=== PATIENT | female | born 1930 | race Caucasian/White ===

== ENCOUNTER 2016-12-18 10:48 | Emergency (ER) | payer MEDICARE, BC ==
[~2016-12-18] VITALS: Ht 165.1 cm; Wt 77.0 kg
[~2016-12-18 10:48] MED LIST: ATOR40TA PO; ESTR0.752 PO; FOSI40TA PO; LORTA5 PO; LYRI50CA2 PO; PRIL40CA PO; REST30CA PO
[2016-12-18 10:59] VITALS: BP 137/77; PULSE 79; RESP 18; TEMP 97.4; O2SAT 94
[2016-12-18] MEDS ORDERED: DULO1CAP2 PO (11:31)
[2016-12-18] MEDS ORDERED: FOSI40TA PO (11:31)
[2016-12-18] MEDS ORDERED: TEMA30CA PO (11:31)
[2016-12-18] MEDS ORDERED: LEVO75TA3 PO (11:31)
[2016-12-18] MEDS ORDERED: OMEP40CA2 PO (11:31)
[2016-12-18] MEDS ORDERED: ATOR40TA16 PO (11:31)
--- NOTE | 2016-12-18 12:15 | PD ---
HPI Chief Complaint: Musculoskeletal Complaint Time Seen by Provider: 11:40 Travel History International Travel<30 days: No Contact w/Intl Traveler<30days: No Traveled to known affect area: No History of Present Illness HPI 86-year-old female presents emergency department for evaluation of left posterior rib pain. Patient reports 2 days ago while in the bathroom her left knee gave out causing her to partially fall onto the sink counter top injuring the left rib on the edge of the countertop. She denies falling to the ground. There was no loss of consciousness. Patient is not anticoagulated. She reports she had pain at the site of the ribs which has been constant since the fall. She denies headache, chest pain, shortness of breath, abdominal pain, nausea or vomiting or hematuria. PFSH Past Medical History Hx Anticoagulant Therapy: No Arthritis: Yes Asthma: No Autoimmune Disease: No Anxiety: No Depression: Yes Heart Rhythm Problems: No Cancer: No Cardiovascular Problems: No High Cholesterol: Yes Chemotherapy: No Chest Pain: No Congestive Heart Failure: No COPD: No Cerebrovascular Accident: No Diabetes: No Diminished Hearing: No Endocrine: No Gastrointestinal Disorders: Yes GERD: No Genitourinary: No Hiatal Hernia: No Hypertension: Yes Immune Disorder: No Kidney Stones: No Musculoskeletal: Yes Neurologic: No Psychiatric: No Reproductive: Yes (hysterectomy) Respiratory: No Migraines: No Radiation Therapy: No Renal Failure: No Seizures: No Shingles: Yes (right cheek/ear area) Sickle Cell Disease: No Sleep Apnea: No Thyroid Disease: Yes Ulcer: No Influenza Vaccination: Yes ?: Not Past Surgical History Abdominal Surgery: Yes (Appendix and gallbladder) AICD: No Appendectomy: Yes Arteriovenous Shunt: No Cardiac Surgery: No Cholecystectomy: Yes Ear Surgery: No Endocrine Surgery: No Eye Surgery: No Gynecologic Surgery: Yes (hysterectomy) Hysterectomy: Yes Insulin Pump: No Joint Replacement: Yes (right knee) Oral Surgery: No Pacemaker: No Thoracic Surgery: No Tonsillectomy: Yes Other Surgery: Yes Social History Alcohol Use: Yes (SOCIALLY) Tobacco Use: No Substance Use: No Allergies-Medications (Allergen,Severity, Reaction): Coded Allergies: No Known Allergies (Verified , 12/18/16) Reported Meds & Prescriptions Reported Meds & Active Scripts Active Ultram (Tramadol HCl) 50 Mg Tab 50 Mg PO Q6H PRN Reported Fosinopril (Fosinopril Sodium) 40 Mg Tab 40 Mg PO DAILY Temazepam 30 Mg Cap 30 Mg PO HS PRN Omeprazole 40 Mg Cap 40 Mg PO DAILY Duloxetine DR (Duloxetine HCl) 30 Mg Capdr 30 Mg PO DAILY Levothyroxine (Levothyroxine Sodium) 75 Mcg Tab 75 Mcg PO DAILY Atorvastatin (Atorvastatin Calcium) 40 Mg Tab 40 Mg PO HS Review of Systems Except as stated in HPI: all other systems reviewed are Neg General / Constitutional: No: Fever Eyes: No: Visual changes HENT: No: Headaches Cardiovascular: No: Chest Pain or Discomfort Respiratory: No: Shortness of Breath Gastrointestinal: No: Abdominal Pain Genitourinary: No: Dysuria Musculoskeletal: Positive: Pain (left posterior rib pain) Neurologic: No: Weakness Physical Exam Narrative GENERAL: Well-nourished, well-developed patient. SKIN: Focused skin assessment warm/dry. HEAD: Normocephalic. Atraumatic EYES: No scleral icterus. No injection or drainage. NECK: Supple, trachea midline. No JVD or lymphadenopathy. CARDIOVASCULAR: Regular rate and rhythm without murmurs, gallops, or rubs. RESPIRATORY: Breath sounds equal bilaterally. No accessory muscle use. CHEST WALL: Left lower posterior rib pain without crepitus. GASTROINTESTINAL: Abdomen soft, non-tender, nondistended. MUSCULOSKELETAL: No cyanosis, or edema. BACK: Midline spine Nontender without obvious deformity. No CVA tenderness. Data Data Last Documented VS Vital Signs Date Time Temp Pulse Resp B/P Pulse Ox O2 Delivery O2 Flow Rate FiO2 12/18/16 13:21 80 18 177/90 95 21 12/18/16 10:59 97.4 Orders Ribs, Uni (W/Exp Cxr-Min 3vw) (12/18/16 ) Ketorolac Inj (Toradol Inj) (12/18/16 13:15) MDM Medical Decision Making Medical Screen Exam Complete: Yes Emergency Medical Condition: Yes Differential Diagnosis Rib fracture, rib contusion, pneumothorax Narrative Course 86-year-old female with left posterior rib pain after falling into her bathroom countertop 2 days ago. Patient did not fall to the ground. She did not lose consciousness. Patient drove over 500 miles after the injury. She reports the pain has been constant and is unrelieved by [id number] Tylenol and Motrin. She denies chest pain, shortness of breath, abdominal pain. On physical exam she has posterior lower left rib pain. No CVA tenderness. X-ray pending X-ray of the left ribs/chest were negative for fracture or pneumothorax. Diagnostic findings discussed with patient. She will be treated for pain. Return precautions discussed. Patient verbalizes understanding and agrees to plan. Diagnosis Primary Impression: Rib contusion Qualified Code: S20.212A - Contusion of rib on left side, initial encounter Additional Instructions: Take medications as prescribed. Avoid heavy lifting or strain as activity. Return to the emergency department if he developed new or worsening symptoms such as increasing pain, shortness of breath. Scripts Tramadol (Ultram)50 Mg Tab50 Mg PO Q6H PRN (PAIN) #12 TAB Ref 0 Prov:Rohan Mesa MD 12/18/16 Disposition: 01 DISCHARGE HOME Condition: Stable Martita Diego Dec 18, 2016 12:15
--- NOTE | 2016-12-18 12:55 | RADRPT ---
EXAM DATE/TIME: 12/18/2016 12:13 [facility] COMPARISON: No previous studies available for comparison. INDICATIONS : Fell, complains of left rib pain. MEDICAL HISTORY : None. SURGICAL HISTORY : None. ENCOUNTER: Initial ACUITY: 4 - 6 days PAIN SCORE: 10/10 LOCATION: Left ribs FINDINGS: 5 views of the chest and left ribs demonstrates no pneumothorax. No acute rib fracture or acute rib a bnormality is identified. Descending thoracic aorta is very tortuous. There is thoraco- lumbar scolio sis. Calcification is present within the aorta. CONCLUSION: 1. No rib fracture or acute abnormality is identified. 2. 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 Michael Connor MD on December 18, 2016 at 12:51 Board Certified Radiologist. This report was verified electronically.
[2016-12-18] MEDS ORDERED: ULTR50TA5 PO (13:08)
[2016-12-18] MEDS ORDERED: KETOROLAC TROMETHAMINE 60 MG/2 ML (IM) VIAL IM ONE (13:15)
[2016-12-18 13:21] VITALS: BP 177/90
== END 2016-12-18 13:22 | disposition home or self-care (01) ==
LOC: PHEFT 10:48
DX: S20.212A Contusion of left front wall of thorax, initial encounter (principal); W22.09XA Striking against other stationary object, initial encounter; Y92.002 Bathroom of unspecified non-institutional (private) residence as the place of occurrence of the external cause
CPT/HCPCS: 71101; 96372; 99284; J1885

== ENCOUNTER 2017-04-22 20:38 | Emergency (ER) | payer MEDICARE, BC ==
[~2017-04-22 20:38] MED LIST changes: -ATOR40TA PO; +ATOR40TA16 PO; +DULO1CAP2 PO; -ESTR0.752 PO; +LEVO75TA3 PO; -LORTA5 PO; -LYRI50CA2 PO; +OMEP40CA2 PO; -PRIL40CA PO; -REST30CA PO; +TEMA30CA PO; +TRAM50 PO
[2017-04-22 20:44] VITALS: BP 165/71; PULSE 86; RESP 20; TEMP 97.1; O2SAT 96
--- NOTE | 2017-04-22 21:28 | PD ---
HPI Chief Complaint: Injury Time Seen by Provider: 21:08 Travel History International Travel<30 days: No Contact w/Intl Traveler<30days: No Traveled to known affect area: No History of Present Illness HPI The patient is a 87-year-old female who presents to the emergency department for left wrist pain. The patient states she fractured her left wrist approximately one month ago. She wore splint for 10 days and then was placed into a Velcro wrist splint by her hand surgeon, Dr. Mcgovern. The patient was just recently cleared to take the brace off except for when she is driving. The patient was at home earlier tonight when she tripped on the carpet and fell forward. She now complains of pain over the left wrist. She does note Limited range of motion secondary to pain. She did have numbness of the first and second digit of the left hand after the initial injury which is persistent. She is right-hand dominant. She does note that the swelling and deformity of the left wrist was there for the prior injury. She denies any pain of the left elbow or left shoulder. She denies any loss of consciousness, head injury, or neck pain during the fall. PFSH Past Medical History Hx Anticoagulant Therapy: No Arthritis: Yes Asthma: No Autoimmune Disease: No Anxiety: No Depression: Yes Heart Rhythm Problems: No Cancer: No Cardiovascular Problems: No High Cholesterol: Yes Chemotherapy: No Chest Pain: No Congestive Heart Failure: No COPD: No Cerebrovascular Accident: No Diabetes: No Diminished Hearing: No Endocrine: No Gastrointestinal Disorders: Yes GERD: No Genitourinary: No Hiatal Hernia: No Hypertension: Yes Immune Disorder: No Kidney Stones: No Musculoskeletal: Yes Neurologic: No Psychiatric: No Reproductive: Yes (hysterectomy) Respiratory: No Migraines: No Radiation Therapy: No Renal Failure: No Seizures: No Shingles: Yes (right cheek/ear area) Sickle Cell Disease: No Sleep Apnea: No Thyroid Disease: Yes Ulcer: No Past Surgical History Abdominal Surgery: Yes (Appendix and gallbladder) AICD: No Appendectomy: Yes Arteriovenous Shunt: No Cardiac Surgery: No Cholecystectomy: Yes Ear Surgery: No Endocrine Surgery: No Eye Surgery: No Gynecologic Surgery: Yes (hysterectomy) Hysterectomy: Yes Insulin Pump: No Joint Replacement: Yes (right knee) Oral Surgery: No Pacemaker: No Thoracic Surgery: No Tonsillectomy: Yes Other Surgery: Yes Social History Alcohol Use: Yes (SOCIALLY) Tobacco Use: No Substance Use: No Allergies-Medications (Allergen,Severity, Reaction): Coded Allergies: No Known Allergies (Verified , 12/18/16) Reported Meds & Prescriptions Reported Meds & Active Scripts Active Ultram (Tramadol HCl) 50 Mg Tab 50 Mg PO Q6H PRN Reported Fosinopril (Fosinopril Sodium) 40 Mg Tab 40 Mg PO DAILY Temazepam 30 Mg Cap 30 Mg PO HS PRN Omeprazole 40 Mg Cap 40 Mg PO DAILY Duloxetine DR (Duloxetine HCl) 30 Mg Capdr 30 Mg PO DAILY Levothyroxine (Levothyroxine Sodium) 75 Mcg Tab 75 Mcg PO DAILY Atorvastatin (Atorvastatin Calcium) 40 Mg Tab 40 Mg PO HS Review of Systems General / Constitutional: No: Fever HENT: No: Headaches, Lightheadedness, Neck Pain Cardiovascular: No: Syncope Musculoskeletal: Positive: Edema, Pain Neurologic: Positive: Paresthesia (persistent paresthesias of the first and second digit after the initial injury), No: Dizziness, Syncope Physical Exam Narrative GENERAL: Awake, alert, pleasant 87-year-old female who appears younger than her stated age and is in no acute respiratory distress. SKIN: Focused skin assessment warm/dry. HEAD: Atraumatic. Normocephalic. No visible cephalohematoma. EYES: Pupils equal and round. No injection or drainage. ENT: No nasal bleeding or discharge. Mucous membranes pink and moist. NECK: Trachea midline. No JVD. No tenderness of the cervical vertebrae. MUSCULOSKELETAL: There is edema over the left wrist. Minimal tenderness upon palpation. No tenderness in the anatomic snuffbox. Limited range of motion with flexion, extension, radial deviation, and ulnar deviation. Limited ability to supinate pronate secondary to pain. No tenderness of the proximal left forearm. Patient is able flex and extend the left elbow without difficulty. Positive left radial pulse. Intrinsic hand muscles are intact. NEUROLOGICAL: Awake and alert. No obvious cranial nerve deficits. Motor grossly within normal limits. Normal speech. Sensation was intact to soft touch all 5 digits of the left hand. PSYCHIATRIC: Appropriate mood and affect; insight and judgment normal. Data Data Last Documented VS Vital Signs Date Time Temp Pulse Resp B/P (MAP) Pulse Ox O2 Delivery O2 Flow Rate FiO2 04/22/17 20:44 97.1 86 20 165/71 (102) 96 Orders Orders Wrist, Complete ([id number]) (04/22/17 ) Splint Or Brace Apply/Monitor (04/22/17 21:43) Radiology Film Requests (04/22/17 ) [facility] Medical Decision Making Medical Screen Exam Complete: Yes Emergency Medical Condition: Yes Medical Record Reviewed: Yes Interpretation(s) Last Impressions Wrist X-Ray 04/22/17 0000 Signed Impressions: Service Date/Time: Saturday, April 22, 2017 21:20 - CONCLUSION: Acute fracturing of the distal radius with dorsal angulation of the distal fragment and fracture at the base of the ulnar styloid. Michael Roy MD Differential Diagnosis Differential diagnosis includes fracture, contusion, sprain, strain, hematoma. Narrative Course X-ray of the left wrist was obtained. I offered the patient pain medication, she declined stating that ibuprofen works well at home. X-ray reveals a fracture the distal radius with dorsal angulation of the distal fragment and fracture the base of the ulnar styloid. This sounds like the previous fracture that the patient describes, however, there are no comparison films. Therefore, the patient was placed in a sugar tong splint. A copy of the x-ray was placed on a disc so she can take it to Dr. Mcgovern's office this week for evaluation. She declines pain medication. She is advised elevate and ice. Return if symptoms worsen or progress. Diagnosis Primary Impression: Left wrist fracture Qualified Codes: S62.102A - Fracture of unspecified carpal bone, left wrist, initial encounter for closed fracture Patient Instructions: General Instructions Additional Instructions: Splint as directed. Elevate and ice. Take the disc of your x-ray films to your hand surgeon for comparison. Tylenol and/or ibuprofen as needed for pain. Return if symptoms worsen or progress. Med/Other Pt SpecificInfo: No Change to Meds Disposition: 01 DISCHARGE HOME Condition: Stable Leonidas De Anda MD Apr 22, 2017 21:27
--- NOTE | 2017-04-22 21:41 | RADRPT ---
EXAM DATE/TIME: 04/22/2017 21:20 [facility] COMPARISON: No previous studies available for comparison. INDICATIONS : Left wrist fracture 1 month ago, fell again today. MEDICAL HISTORY : None. SURGICAL HISTORY : None. ENCOUNTER: Initial ACUITY: 1 day PAIN SCORE: 5/10 LOCATION: Left wrist. FINDINGS: There is fracture of the distal radius at the metaphyseal region and the ulnar styloid base. There is some dorsal angulation of the distal radial fragment. The bones are osteopenic. There is degenerativ e change at the first carpometacarpal joint. CONCLUSION: Acute fracturing of the distal radius with dorsal angulation of the distal fragment and fracture at t he base of the ulnar styloid. Michael Roy MD on April 22, 2017 at 21:37 Board Certified Radiologist. This report was verified electronically.
== END 2017-04-22 22:18 | disposition home or self-care (01) ==
LOC: PHEFT 20:38
DX: S52.592A Other fractures of lower end of left radius, initial encounter for closed fracture (principal); S52.612A Displaced fracture of left ulna styloid process, initial encounter for closed fracture; E78.00 Pure hypercholesterolemia, unspecified; I10 Essential (primary) hypertension; W01.0XXA Fall on same level from slipping, tripping and stumbling without subsequent striking against object, initial encounter; Y92.009 Unspecified place in unspecified non-institutional (private) residence as the place of occurrence of the external cause
CPT/HCPCS: 29125; 73110